=== PATIENT | female | born 1975 | race Caucasian/White ===

== ENCOUNTER 2016-09-09 15:42 | Emergency (ER) | payer SELFPAY ==
[2016-09-09] MEDS ORDERED: Ondansetron ODT 4 MG TAB ONE (16:07)
[2016-09-09] MEDS ORDERED: Sulfameth/Trimethoprim DS 800-160mg TAB ONE (16:07)
[2016-09-09 16:18] LABS: Bilirubin Negative (Negative); Blood, Urine Large (Negative); Clarity Turbid (Clear); Glucose, Urine (Dipstick) 500 mg/dL (Negative); Leukocyte Small (Negative); Nitrite Positive (Negative); Protein, Urine (Dipstick) 30 mg/dL (Neg-Trace); Urobilinogen 0.2 mg/dL (0.2-1.0)
[2016-09-09] MEDS ORDERED: traMADol HCl 50 MG TAB ONE (16:23)
[2016-09-09 16:30] LABS: Bacteria/HPF 1+ HPF (None Seen); RBC/HPF 0-3 HPF (0-3); Squamous Epithelial 0-3 HPF (0-3)
[2016-09-09 17:00] LABS: #Basophils 0.1 thou/uL (0.0-0.2); #Lymphocytes 1.2 thou/uL (1.20-3.40); #Monocytes 0.9 thou/uL (0.11-0.59); #Neutrophils 9.7 thou/uL (1.40-6.50); %Basophils 1.1 % (0.0-1.0); %Eosinophils 0.4 % (0.0-10.0); %Lymphocytes 10.2 % (21.0-51.0); %Monocytes 7.7 % (0.0-10.0); %Neutrophils 80.7 % (42.0-75.0); Hemoglobin 15.6 g/dL (12.0-16.0); Mean Corpuscular HGB CONC 35.1 g/dL (32.0-36.0); Mean Corpuscular Hemoglobin 31.5 pg (27.0-31.0); Mean Corpuscular Volume 89.5 fl (81.0-99.0); Mean Platelet Volume 9.3 fL (7.4-10.4); Platelet Count 184 thou/uL (130-400); RBC Distribution Width 11.7 % (11.5-14.5); Red Blood Cell (RBC) Count 4.96 mill/uL (4.20-5.40); White Blood Cell (WBC) Count 12.1 thou/uL (4.8-10.8)
[2016-09-09] MEDS ORDERED: cefTRIAXone\\ROCEPHIN 2 GM VIAL ONE (17:04)
[2016-09-09] MEDS ORDERED: Sodium Chloride 0.9% 100 ML ONE (17:04)
[2016-09-09 17:18] LABS: ALT (SGPT) 19 U/L (8-55); AST (SGOT) 13 U/L (5-34); Albumin 3.7 g/dL (3.5-5.0); Alkaline Phosphatase 100 U/L (40-150); Anion Gap 15 mmol/L (10-20); BUN (Urea Nitrogen) 11 mg/dL (7.0-18.7); Bilirubin, Total 1.3 mg/dL (0.2-1.2); Calc. Creatinine Clearance 0 mL/min (70-130); Calcium 9.3 mg/dL (7.8-10.44); Carbon Dioxide 23 mmol/L (22-29); Chloride 100 mmol/L (98-107); Estimated GFR-MDRD 73; Glucose 425 mg/dL (70-105); Potassium 4.2 mmol/L (3.5-5.1); Protein, Total 6.7 g/dL (6.0-8.3); Sodium 134 mmol/L (136-145)
== END 2016-09-09 18:10 | disposition home or self-care (01) ==
LOC: BURERS 15:42
DX: N12 Tubulo-interstitial nephritis, not specified as acute or chronic (principal); K59.00 Constipation, unspecified; E11.65 Type 2 diabetes mellitus with hyperglycemia; E11.40 Type 2 diabetes mellitus with diabetic neuropathy, unspecified; I10 Essential (primary) hypertension; E78.5 Hyperlipidemia, unspecified; F17.210 Nicotine dependence, cigarettes, uncomplicated; Z91.14 Patient's other noncompliance with medication regimen; Z79.899 Other long term (current) drug therapy
CPT/HCPCS: 36416; 80053; 81003; 81015; 82010; 83605; 85025; 87040; 87077; 87086; 87149; 87186; 96365; J0696; J7050; Q0162

== ENCOUNTER 2016-12-17 02:10 | Emergency (ER) | payer SELFPAY | END 2016-12-17 02:56 | disposition home or self-care (01) | LOC: BURERS 02:10 | DX: E86.0 Dehydration (principal); A08.4 Viral intestinal infection, unspecified; J45.909 Unspecified asthma, uncomplicated; I10 Essential (primary) hypertension; E11.40 Type 2 diabetes mellitus with diabetic neuropathy, unspecified; J42 Unspecified chronic bronchitis; E78.5 Hyperlipidemia, unspecified; F17.210 Nicotine dependence, cigarettes, uncomplicated; Z79.4 Long term (current) use of insulin | CPT/HCPCS: 99283 ==

== ENCOUNTER 2017-08-15 13:18 | Emergency (ER) | payer SELFPAY | END 2017-08-15 13:46 | disposition home or self-care (01) | LOC: BURERS 13:18 | DX: J01.90 Acute sinusitis, unspecified (principal); E78.5 Hyperlipidemia, unspecified; I10 Essential (primary) hypertension; J45.909 Unspecified asthma, uncomplicated; E11.40 Type 2 diabetes mellitus with diabetic neuropathy, unspecified; F31.9 Bipolar disorder, unspecified; F17.210 Nicotine dependence, cigarettes, uncomplicated; Z79.4 Long term (current) use of insulin | CPT/HCPCS: 99283 ==

== ENCOUNTER 2018-05-25 17:29 | Emergency (ER) | payer SELFPAY ==
[2018-05-25] MEDS ORDERED: Albuterol Sulfate 1.25 MG/3 ML NEB ONE (17:41)
[2018-05-25] MEDS ORDERED: predniSONE 20 MG TAB ONE (18:11)
== END 2018-05-25 18:16 | disposition home or self-care (01) ==
LOC: BURERS 17:29
DX: J44.1 Chronic obstructive pulmonary disease with (acute) exacerbation (principal); F17.210 Nicotine dependence, cigarettes, uncomplicated; F31.9 Bipolar disorder, unspecified; E11.40 Type 2 diabetes mellitus with diabetic neuropathy, unspecified; J45.909 Unspecified asthma, uncomplicated; E78.5 Hyperlipidemia, unspecified; Z91.19 Patient's noncompliance with other medical treatment and regimen; Z79.899 Other long term (current) drug therapy; Z79.4 Long term (current) use of insulin
CPT/HCPCS: 36416; 94640; J7506; J7620

== ENCOUNTER 2018-11-05 10:30 | Emergency (ER) | payer SELFPAY | END 2018-11-05 10:48 | disposition home or self-care (01) | LOC: BURERS 10:30 | DX: K04.7 Periapical abscess without sinus (principal); K02.9 Dental caries, unspecified; F31.9 Bipolar disorder, unspecified; F17.210 Nicotine dependence, cigarettes, uncomplicated | CPT/HCPCS: 41800 ==

== ENCOUNTER 2019-07-27 11:35 | Emergency (ER) | payer SELFPAY ==
[2019-07-27] MEDS ORDERED: HYDROcodone/Acetaminophen 5/325 mg Tablet ONE (12:39)
[2019-07-27] MEDS ORDERED: Bacitracin 1 PK ONE (12:41)
== END 2019-07-27 12:47 | disposition home or self-care (01) ==
LOC: BURERS 11:35
DX: L02.411 Cutaneous abscess of right axilla (principal); E11.9 Type 2 diabetes mellitus without complications; I10 Essential (primary) hypertension; E78.00 Pure hypercholesterolemia, unspecified; J45.909 Unspecified asthma, uncomplicated; F31.9 Bipolar disorder, unspecified; F17.210 Nicotine dependence, cigarettes, uncomplicated
CPT/HCPCS: 10060

== ENCOUNTER 2019-08-07 21:16 | Emergency (ER) | payer SELFPAY ==
[2019-08-07] MEDS ORDERED: HYDROcodone/Acetaminophen 10/325 mg Tablet ONE (21:19)
--- NOTE | 2019-08-07 21:50 | CT ---
CT FACIAL BONES: 08/07/19 An area of soft tissue swelling and contusion is seen lateral to the left orbit. No underling fractur es were apparent. The orbital rims, nasal bones, and zygomatic arches appear intact, as does the adalgisa ible. There is minor deviation of the nasal septum towards the left. The paranasal sinuses are clear and the retro-orbital areas appear normal. IMPRESSION: No acute fractures. Findings called to Dr. Shah at 2142 on 08/07/19. POS: HOME
--- NOTE | 2019-08-07 21:53 | CT ---
CT OF THE BRAIN 08/07/[address] was done following trauma. Soft tissue swelling and hematoma is seen in the soft tis sues lateral to the left orbit. No intracranial bleeding or extra-axial hematoma was seen. The ventri cles are normal in size. There is no sign of mass, edema, or stroke. The skull appears intact. No fra ctures were seen. The sphenoid sinus is clear as are the mastoid air cells. IMPRESSION: No acute intracranial findings. Preliminary report called to Dr. Shah at 0133 on 08/07/19. POS: HOME
== END 2019-08-07 22:00 | disposition home or self-care (01) ==
LOC: BURERS 21:16
DX: S00.03XA Contusion of scalp, initial encounter (principal); S00.12XA Contusion of left eyelid and periocular area, initial encounter; E11.9 Type 2 diabetes mellitus without complications; I10 Essential (primary) hypertension; E78.00 Pure hypercholesterolemia, unspecified; J45.909 Unspecified asthma, uncomplicated; F31.9 Bipolar disorder, unspecified; F17.210 Nicotine dependence, cigarettes, uncomplicated; Y09 Assault by unspecified means
CPT/HCPCS: 70450; 70486